=== PATIENT | male | born 1955 | race Caucasian/White ===

== ENCOUNTER 2021-03-10 06:39 | Outpatient (CLI) | payer MEDICARE, SELFPAY ==
[2021-03-10 07:13] VITALS: BP 126/89; PULSE 95; RESP 16; TEMP 37.1; O2SAT 93
[2021-03-10 07:49] VITALS: BP 120/64; PULSE 67; RESP 14; O2SAT 92
[2021-03-10 08:35] VITALS: BP 123/71; PULSE 93; RESP 16; TEMP 36.9; O2SAT 94
== END 2021-03-10 06:40 | disposition home or self-care (01) ==
LOC: OPS 06:47
PROVIDERS: PCP Nurse Practitioner Family; Visit Provider Nurse Practitioner Family
DX: U07.1 COVID-19 (principal)
CPT/HCPCS: 96365